=== PATIENT | male | born 1935 | race Caucasian/White ===

== ENCOUNTER → 2016-09-18 | Outpatient (CLI) | payer OTHER | LOC: FIMAGING 14:53 | PROVIDERS: ATTEND Family Medicine | DX: M48.56XA Collapsed vertebra, not elsewhere classified, lumbar region, initial encounter for fracture (principal); M51.36 Other intervertebral disc degeneration, lumbar region; M43.16 Spondylolisthesis, lumbar region ==

== ENCOUNTER 2016-09-20 07:25 | Emergency (ER) | payer OTHER ==
--- NOTE | 2016-09-20 07:44 | UCPHY ---
H & P Patient Type: Established HPI/ROS: CHIEF COMPLAINT: Low back pain HISTORY OF PRESENT ILLNESS: This patient is an 81 year old man, with a history of low back pain and disc herniation in the remote past, presenting with recurrence of low back pain, onset 2-3 weeks ago. The pain is localized to his diffuse lower back, moderate in severity. Pain is aggravated by laying flat and aggravated on the left side with lifting. He denies hip pain. Denies acute leg numbness or paresthesia. He denies bowel or bladder incontinence. Denies abdominal pain or recent fever. He denies fall or recent trauma. The patient had a similar recurrence of pain approximately one year ago, for which he got a prescription for Tramadol, which alleviated his symptoms. He tried taking the Tramadol for his current symptoms, with very slight alleviation. He saw Dr. Stallworth at [facility] on , two days ago. Dr. Stallworth ordered lumbar spine X-ray for evaluation. For the last day and a half, he has taken three doses of Tramadol daily and has alternated Aleve (two pills per day) and Advil (two pills per day) every 6 hours , with little alleviation. He last took Tramadol at 4am (four hours ago) Lumbar spine x-ray 09/18/16: Impression: 1. Moderate compression of L1 vertebral body and mild anterior wedge compression deformity of L2 vertebral body. With no comparisons these are age indeterminate. Consider MRI for further evaluation to evaluate acuity. 2. 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 Most significant level is at L4-L5 where there is grade 1 anterior spondylolisthesis of L4 on L5. REVIEW OF SYSTEMS: A ten point review of systems was performed and is negative with the exception of the items mentioned in the HPI. The patient complains of constipation, the last several days. His last bowel movement was yesterday. He has been wearing adult diapers at night for the last week, in case of urinary incontinence, although he denies urinary incontinence. He reports generalized weakness since the pain onset. 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 He is , but his lives in assisted living. He lives alone at home. He has family in the area. His primary care provider is Dr. Stallworth with [facility]. - Physical Exam Exam: General Appearance: Alert. Vital signs reviewed. Blood pressure 166/98. Eyes: Pupils equal and round, no conjunctival injection, no discharge. Anicteric. ENT, Mouth: Mucous membranes are moist, no oropharyngeal erythema or edema. Neck: Nontender over the cervical spine, supple. Respiratory: Lungs are clear to auscultation; no wheezes, rales, or rhonchi. Cardiovascular: Regular rate and rhythm; no murmur, rub, or gallop. Gastrointestinal: Abdomen is soft and nontender, no masses or organomegaly, bowel sounds normal. Rectal: Normal rectal tone. Nontender. Skin: Warm and dry, no rashes on exposed skin, normal color. Back: Nontender to palpation over the thoracolumbar spine. No CVA tenderness. The is mild tenderness left lumbar paraspinous muscles. Extremities: No lower extremity edema, no calf tenderness or swelling. Neurological: Alert and oriented. Moving all four extremities easily and equally. Strength is 5 over 5 bilaterally with testing of all major motor groups. Sensation is intact to light touch over all 4 extremities. Deep tendon reflexes are 3+ in the knees bilaterally, absent ankle DTRs. No clonus. Gait is normal. Psychiatric: Normal affect. Constitutional: Initial Vital Signs Temperature (C) 36.4 C 09/20/16 07:44 Heart Rate 71 09/20/16 07:44 Respiratory Rate 18 09/20/16 07:44 Blood Pressure 166/98 H 09/20/16 07:44 O2 Sat (%) 96 09/20/16 07:44 O2 Delivery Mode Room Air Allergies/Adverse Reactions: No Known Allergies Allergy (Verified 09/20/16 07:44) Home Medications: Medication Instructions Recorded Orphenadrine Citrate [Norflex 100 100 mg PO HS #10 tab 10/27/15 mg (RX)] Tramadol HCl 50 mg PO QID #20 tablet 10/27/15 Hydrocodone/APAP 5/325 [[place] 1 - 2 tab PO Q4 PRN #15 tab 09/20/16 5/325 (RX)] Medical Decision Making ED Course/Re-evaluation: This patient presents with three weeks of low back pain, without leg paresthesia or weakness or bowel/bladder incontinence. The pain is moderate in severity and he is moderately uncomfortable in the room. Lower extremity strength is 5/5 on exam bilaterally. Patellar reflexes are symmetric and 3+ bilaterally. Rectal tone is normal on exam. The patient has taken Tramadol, Aleve, and Advil for alleviation, last dose of tramadol at 4am. The patient has seen Dr. Stallworth at [facility] and had lumbar spine x-rays taken 09/18/16, which demonstrated moderate compression of L1 vertebral body and mild anterior wedge compression deformity of L2 vertebral body as well as multilevel degenerative disk and degenerative joint disease lumbar spine, most significant at L4-L5 where there is grade 1 anterior spondylolisthesis of L4 on L5. I discussed my recommendation for lumbar spine MRI (to assess age of compression fractures) and referral to neurosurgery. I offered to transfer the patient to [facility] for lumbar spine MRI today. I also offered to communicate with [place] and try to arrange a MRI as an outpatient. I ordered a dose of ibuprofen in the [facility] today, 400mg PO. I also offered to write a prescription for [place] for home use. I have advised him to not drive or operate heavy machinery while taking the [place]. I have contacted [facility] MRI/imaging to arrange outpatient MRI. I have made an appointment for the patient at 10:30am this morning. He will drive himself to [facility] for the appointment. Dr. Carrizales will be the reading physician. I have also contacted [facility] to inform them of the patient's condition and coordinate care. Addendum. 3:00 p.m.. Patient underwent MRI scanning and I was contacted by Dr. Lemus with a report that he had an acute/subacute L1 compression fracture with some retropulsion but no conus compression. I spoke with Dr. Thibodeaux of Neurosurgery who recommends a Casey brace and pain control. He will see the patient in his office in two weeks. Arrangements have been made for [employer] brace to fit him for a Jewitt brace. He will meet [employer] brace rep at [facility]. Addendum: I spoke with the patient on September 23. He telephoned yesterday wondering about using a muscle relaxant. He is having some success with the hydrocodone but continues with significant pain. He has not been able to wear the brace. He tried it for couple of days but is no longer wearing it because it is uncomfortable. He is currently using hydrocodone, no more frequently than one pill every 4 hours, and Advil 400 mg 3 times daily. He would like to try a muscle relaxant. I have agreed to phone in a prescription for a muscle relaxant for him to use. He understands that he should not take it along with the hydrocodone. I have advised him that if he is still having continued pain or if he has any worsening of his pain he needs to see his primary care physician or return to the urgent care or emergency department. He also understands that if he has bowel or bladder problems he needs to be seen immediately. He has an appointment with Neurosurgery on September 29, 5 days hence. Differential Diagnosis: The differential diagnosis for the patient's back pain included but was not limited to musculo-skeletal pain, epidural abscess, herniated disk, spinal fracture, and intra-abdominal causes including urinary system. - Data Points Medications Given: Discontinued Medications Ibuprofen (Motrin) 400 mg PO EDNOW ONE Stop: 09/20/16 08:29 Last Admin: 09/20/16 08:40 Dose: 400 mg Departure - Departure Disposition: Home, Routine, Self-Care Clinical Impression: Low back pain Condition: Good Instructions: Back Pain (ED) Additional Instructions: You have an appointment for an outpatient lumbar spine MRI at [facility]-imaging department at 10:30am today. Followup with a clinical account specialist or neurosurgeon within 2-3 weeks. Return to the [facility] or seek care from an emergency department for severe pain, fever, numbness, difficulty walking, change in location or nature of pain or other concerns. Take 400mg ibuprofen, three times daily (every 6 hours). Take the [place] for severe pain, as directed. Do not drive or operate heavy machinery while taking the [place]. Referrals: Shayy Stallworth MD [Primary Care Provider] - As per Instructions Kd Thibodeaux MD [Medical Doctor] - As per Instructions (Neurosurgeon) Prescriptions: Hydrocodone/APAP 5/325 [[place] 5/325 (RX)] 1 - 2 tab PO Q4 PRN #15 tab PRN Reason: pain - PQRS PQRS Measurement: 134: Depression screening and followup, PRIME MD-PHQ2 (12 years and older) Over the last 2 weeks, how often have you been bothered by any of the following problems? 1. Feeling down, depressed, or hopeless? 2. Little interest or pleasure in doing things? Patient answered no to both 1 and 2 130: Documentation of medications. Reviewed all patient medications, doses, route and frequency. 226: Do you smoke? No. 47: 65 and older: Advanced care planning. Patient has advanced directive. 51: 18 years old and older with diagnosis of COPD, spirometry performance. Patient has no history of COPD 52: 18 years old and older with COPD and symptoms of COPD or FEV1<60% predicted prescribed a B Agonist. Not applicable. Report Scribed for: Krystal Moran Report Scribed by: Cydney Mora Date of Report: 09/20/16 Time of Report: 08:06 Physician Review and Approval Statement: 09/20/16 15:10 Portions of this note were transcribed by the medical staff manager. I, Dr. Krystal Moran, personally performed the history, physical exam, and medical decision- making; and confirmed the accuracy of the information in the transcribed note.
[2016-09-20 07:47] VITALS: BP 166/98; PULSE 71; RESP 18; TEMP 97.5; O2SAT 96
[2016-09-20] MEDS ORDERED: IBUPROFEN 200 MG TAB PO ONE (08:28)
== END 2016-09-20 09:17 | disposition home or self-care (01) ==
LOC: CED 07:25
DX: M54.9 Dorsalgia, unspecified (principal); S32.010A Wedge compression fracture of first lumbar vertebra, initial encounter for closed fracture; M51.36 Other intervertebral disc degeneration, lumbar region; M43.16 Spondylolisthesis, lumbar region; Z87.891 Personal history of nicotine dependence
CPT/HCPCS: 72148; G0463

== ENCOUNTER 2016-09-20 16:30 | Emergency (ER) | payer OTHER | END 2016-09-20 17:10 | disposition left against medical advice (07) | LOC: CED 16:30 | DX: Z46.89 Encounter for fitting and adjustment of other specified devices (principal); Z53.21 Procedure and treatment not carried out due to patient leaving prior to being seen by health care provider ==

== ENCOUNTER 2016-09-27 08:57 | Emergency (ER) | payer OTHER ==
--- NOTE | 2016-09-27 09:06 | EDPHY ---
H & P Stated Complaint: SUDDEN MEMORY LOSS AROUND 1AM Time Seen by Provider: 09/27/16 09:05 - Personal History Current Tetanus/Diphtheria Vaccine: Unsure Current Tetanus Diphtheria and Acellular Pertussis (TDAP): Unsure - Medical/Surgical History Hx Asthma: No Hx Chronic Respiratory Disease: No Hx Diabetes: No Hx Cardiac Disease: No Hx Renal Disease: No Hx Cirrhosis: No Hx Alcoholism: No Hx HIV/AIDS: No Hx Splenectomy or Spleen Trauma: No Other PMH: Hernia Repair, Sinusitis - Social History Smoking Status: Former smoker Constitutional: Initial Vital Signs Temperature (C) 36.3 C 09/27/16 08:59 Heart Rate 82 09/27/16 08:59 Respiratory Rate 16 09/27/16 08:59 Blood Pressure 192/113 H 09/27/16 08:59 O2 Sat (%) 97 09/27/16 08:59 O2 Delivery Mode Room Air Allergies/Adverse Reactions: No Known Allergies Allergy (Verified 09/20/16 07:44) Home Medications: Medication Instructions Recorded Orphenadrine Citrate [Norflex 100 100 mg PO HS #10 tab 10/27/15 mg (RX)] Tramadol HCl 50 mg PO QID #20 tablet 10/27/15 Hydrocodone/APAP 5/325 [[place] 1 - 2 tab PO Q4 PRN #15 tab 09/20/16 5/325 (RX)] Medical Decision Making ED Course/Re-evaluation: CHIEF COMPLAINT: "I had sudden memory loss" HISTORY OF PRESENT ILLNESS: The patient is an 81 y/o male arriving with his son complaining of sudden memory loss since at least last night. He says, "when I tried to use the phone or computer this morning there were all kinds of things I couldn't remember." He doesn't remember that his is in the hospital and that he has been visiting her recently and still does not remember these events. His son at bedside reports last night, the patient's other son said the patient seemed confused and didn't know where his was. The patient denies denies recent illness or trauma. He denies weakness or paresthesias. He notes he recently started using narcotics and a muscle relaxant for back pain over a week ago. REVIEW OF SYSTEMS: A 10 point review of systems was performed and is negative with the exception of the elements mentioned in the history of present illness. PHYSICAL EXAM: HR, BP, O2 Sat, RR. Temp noted General Appearance: Alert, well hydrated, appropriate, and non-toxic appearing. Head: Atraumatic without scalp tenderness or obvious injury Eyes: Pupils equal, round, reactive to light and accommodation, EOMI, no trauma , no injection. Ears: Clear bilaterally, no perforation, normal landmarks Nose: Atraumatic, no rhinorrhea, clear. Throat: There is no erythema or exudates, no lesions, normal tonsils, mucus membranes moist. Neck: Supple, 2+ carotid upstroke, nontender, no lymphadenopathy. Respiratory: No retractions, no distress, no wheezes, and no accessory muscle use. Lungs are clear to auscultation bilaterally. Cardiovascular: Regular rate and rhythm, no murmurs, rubs, or gallops. Bilateral carotid, radial, dorsalis pedis, and posterior tibial pulses intact. Good capillary refill all extremities. Gastrointestinal: Abdomen is soft, nontender, non-distended, no masses, no rebound, no guarding, no peritoneal signs. Musculoskeletal: Normal active ROM of all extremities, atraumatic. Neurological: Alert, appropriate, and interactive. The patient has normal DTRs and non-focal cranial nerves, motor, sensory, and cerebellar exam. Skin: No rashes, good turgor, no nodules on palpation. Past medical history: Back pain, sinusitis Past surgical history: Hernia repair Family history: noncontributory Social history: Son at bedside. 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 [place] medical [place] [facility] [place] for back pain on 09/20/16. DIAGNOSTICS/PROCEDURES/CRITICAL CARE TIME: Study: MRI of the: Brain Indication: Neurologic, memory loss Results: MRI scan of the brain was obtained. The results of the study are sinusitis, nothing acute. The study was read by the radiologist, Dr. Santiago. I viewed the images myself on the PACS system. DIFFERENTIAL DIAGNOSIS: The differential diagnosis for the patient's neurologic deficits included but was not limited to peripheral causes, central causes including CVA, TIA, electrolyte abnormalities and dehydration, cardiogenic causes, atypical causes like migraine syndrome. MEDICAL DECISION MAKING: This is a largely healthy 81 y/o male presenting with symptoms consistent with transient global amnesia onset sometime between last night and this morning. He has a normal neuro exam on assessment and remembers his conversations this morning; however his memory for the last several days has not returned. He has recently started narcotics and muscle relaxants for back pain, but he has no slurred speech or other symptoms indicative of narcotic over-use. Plan for brain MRI to rule out acute process. Brain MRI is negative for acute process. I discussed these findings with the patient and recommended outpatient follow as needed. He is comfortable with this plan. Return precautions given. - Data Points Laboratory Results: Laboratory Results 09/27/16 09:40 09/27/16 09:40 09/27/16 09/27/16 09:40 09:40 WBC 7.15 10^3/uL 10^3/uL (3.80-9.50) RBC 4.43 10^6/uL 10^6/uL (4.40-6.38) Hgb 13.9 g/dL g/dL (13.7-17.5) Hct 39.0 % L % (40.0-51.0) MCV 88.0 fL fL (81.5-99.8) MCH 31.4 pg pg (27.9-34.1) MCHC 35.6 g/dL g/dL (32.4-36.7) RDW 13.2 % % (11.5-15.2) Plt Count 221 10^3/uL 10^3/uL (150-400) MPV 9.0 fL fL (8.7-11.7) Neut % (Auto) 74.9 % H % (39.3-74.2) Lymph % (Auto) 16.8 % % (15.0-45.0) [place] % (Auto) 5.7 % % (4.5-13.0) Eos % (Auto) 1.3 % % (0.6-7.6) Baso % (Auto) 0.7 % % (0.3-1.7) Nucleat RBC Rel Count 0.0 % % (0.0-0.2) Absolute Neuts (auto) 5.36 10^3/uL 10^3/uL (1.70-6.50) Absolute Lymphs (auto) 1.20 10^3/uL 10^3/uL (1.00-3.00) Absolute Monos (auto) 0.41 10^3/uL 10^3/uL (0.30-0.80) Absolute Eos (auto) 0.09 10^3/uL 10^3/uL (0.03-0.40) Absolute Basos (auto) 0.05 10^3/uL 10^3/uL (0.02-0.10) Absolute Nucleated RBC 0.00 10^3/uL 10^3/uL (0-0.01) Immature Gran % 0.6 % % (0.0-1.1) Immature Gran # 0.04 10^3/uL 10^3/uL (0.00-0.10) Sodium 132 mEq/L L mEq/L (134-144) Potassium 4.2 mEq/L mEq/L (3.5-5.2) Chloride 98 mEq/L mEq/L (97-110) Carbon Dioxide 25 mEq/l mEq/l (22-31) Anion Gap 9 mEq/L mEq/L (8-16) BUN 16 mg/dL mg/dL (7-23) Creatinine 0.8 mg/dL mg/dL (0.7-1.3) Estimated GFR > 60 Glucose 102 mg/dL H mg/dL (70-100) Calcium 9.2 mg/dL mg/dL (8.5-10.4) Departure - Departure Disposition: Home, Routine, Self-Care Clinical Impression: Transient global amnesia Condition: Good Instructions: Transient Global Amnesia (ED) Additional Instructions: I recommend having a family member stay with you for a while to watch for returning symptoms. Follow up with your primary care provider if needed. Return to the ED for worsening of condition. Referrals: Shayy Stallworth MD [Primary Care Provider] - As per Instructions Report Scribed for: Artur Marlow Report Scribed by: Jacinta Camargo Date of Report: 09/27/16 Time of Report: 09:35
[2016-09-27 09:47] LABS: % IMMATURE GRANULYOCYTES 0.6 % (0.0-1.1); ABSOLUTE IMMATURE GRANULOCYTES 0.04 10^3/uL (0.00-0.10); ADD DIFF? NO; ADD MORPH? NO; ADD SCAN? NO; ATYPICAL LYMPHOCYTE FLAG 10 (0-99); FRAGMENT RBC FLAG 0 (0-99); HEMOGLOBIN 13.9 g/dL (13.7-17.5); LEFT SHIFT FLG 0 (0-99); LIPEMIA HEMOLYSIS FLAG 90 (0-99); MEAN CELL HEMOGLOBIN 31.4 pg (27.9-34.1); MEAN CELL HEMOGLOBIN CONCENTR. 35.6 g/dL (32.4-36.7); PLATELET CLUMPS FLAG 0 (0-99); PLATELET COUNT 221 10^3/uL (150-400); RED BLOOD CELL COUNT 4.43 10^6/uL (4.40-6.38); RED CELL DISTRIBUTION WIDTH 13.2 % (11.5-15.2)
[2016-09-27 10:07] LABS: ANION GAP 9 mEq/L (8-16); CALCIUM 9.2 mg/dL (8.5-10.4); CARBON DIOXIDE 25 mEq/l (22-31); CHLORIDE 98 mEq/L (97-110); CREATININE 0.8 mg/dL (0.7-1.3); GLOMERULAR FILTRATION RATE > 60; GLUCOSE 102 mg/dL (70-100); POTASSIUM 4.2 mEq/L (3.5-5.2); SODIUM 132 mEq/L (134-144)
[2016-09-27] MEDS ORDERED: GADOBUTROL 10 ML VIAL IVP ONE (10:26)
[2016-09-27 11:49] VITALS: BP 109/75; PULSE 69; RESP 18; TEMP 98.2; O2SAT 96
== END 2016-09-27 11:46 | disposition home or self-care (01) ==
DX: G45.4 Transient global amnesia (principal); Z87.891 Personal history of nicotine dependence
CPT/HCPCS: 70553; 99284; A9585

== ENCOUNTER 2017-11-04 16:10 | Emergency (ER) | payer OTHER ==
--- NOTE | 2017-11-04 16:23 | CPEKG ---
Heart Rate: 72 RR Interval: 833 P-R Interval: 150 QRSD Interval: 92 QT Interval: 396 QTC Interval: 434 P [place]: 71 QRS [place]: 30 T Wave [place]: 6 EKG Severity - NORMAL ECG - EKG Impression: SINUS RHYTHM EKG Impression: Some artifact. Otherwise, agree with above. Electronically Signed By: Zachary Aldrich 05-Nov-2017 11:00:58
[2017-11-04 16:45] LABS: PLATELET COUNT 186 10^3/uL (150-400)
[2017-11-04 18:21] VITALS: BP 172/96
--- NOTE | 2017-11-04 18:44 | EDPHY ---
H & P Stated Complaint: Heartburn, SOB Time Seen by Provider: 11/04/17 16:14 HPI/ROS: 82 yo M presents c/o phlegm in his throat for several months, heartburn and he believes his heart was racing while working in the yard this week. Review of systems As per HPI General no fever no chills no weakness HEENT no eye pain no eye discharge. No eye redness, no sore throat Respiratory no cough, no shortness of breath Cardiac pos chest pain, no peripheral edema, positive palpitations GI no abdominal pain, no diarrhea, no constipation, no nausea, no vomiting no flank pain, no hematuria, no dysuria Musculoskeletal no myalgias, no joint pain Heme no easy bruising, no easy bleeding Endo no polyuria, no polydipsia Skin no rashes, no pruritus Neuro no syncope, no dizziness, no headaches Psych is no suicidal ideation, no homicidal ideation Source: Patient Exam Limitations: No limitations - Personal History Current Tetanus/Diphtheria Vaccine: Unsure Current Tetanus Diphtheria and Acellular Pertussis (TDAP): Unsure - Medical/Surgical History Hx Asthma: No Hx Chronic Respiratory Disease: No Hx Diabetes: No Hx Cardiac Disease: No Hx Renal Disease: No Hx Cirrhosis: No Hx Alcoholism: No Hx HIV/AIDS: No Hx Splenectomy or Spleen Trauma: No Other PMH: Hernia Repair, Sinusitis - Social History Smoking Status: Former smoker - Physical Exam Exam: 82-year-old male alert and oriented no acute distress nontoxic appearance afebrile No tachypnea, no tachycardia HEENT atraumatic normocephalic, extraocular muscles intact, anicteric Oropharynx negative for erythema negative exudate, tolerating her own secretions Neck supple no meningismus Lungs clear to auscultation bilaterally Heart regular rate and rhythm with 2/6 mild systolic ejection murmur Abdomen nondistended normoactive bowel sounds soft nontender Back no CVA tenderness, no step-offs, no spinal tenderness Extremities no cyanosis clubbing or edema Neuro alert and oriented, no focal deficits Constitutional: Initial Vital Signs Temperature (C) 36.4 C 11/04/17 16:19 Heart Rate 81 18 16:19 Respiratory Rate 17 18 16:19 Blood Pressure 194/109 H 18 16:19 O2 Sat (%) 98 11/04/17 16:19 O2 Delivery Mode Room Air Allergies/Adverse Reactions: No Known Allergies Allergy (Verified 09/20/16 07:44) Home Medications: Medication Instructions Recorded Orphenadrine Citrate [Norflex 100 100 mg PO HS #10 tab 10/27/15 mg (RX)] Tramadol HCl 50 mg PO QID #20 tablet 10/27/15 Hydrocodone/APAP 5/325 [[place] 1 - 2 tab PO Q4 PRN #15 tab 09/20/16 5/325 (RX)] Medical Decision Making - Diagnostics EKG Interpretation: Normal sinus rhythm, no ischemic changes Imaging Results: Imaging Impressions Chest X-Ray 11/04/17 16:31 Impression: 1. No pneumonia. Normal heart. 2. Right upper lobe nodule. If there are any old outside chest x-rays, we would be happy to review them to assess for interval change. If not, recommend noncontrast chest CT for further evaluation. Results discussed with Dr. Sanchez at 5:20 PM. ED Course/Re-evaluation: Patient seen and evaluated for phlegm several months duration, palpitations, heartburn. EKG normal sinus rhythm Chest x-ray no infiltrate, nodule noted by radiologist report given to patient to give to his primary care physician for further follow-up Labs D-dimer negative Troponin negative x2 CBC within normal limits CMP within normal limits TSH wnl Imp palpitations cxr with nodule, not likely related to todays complaints heartburn- neg troponins, normal ekg, pt states worse with swallowing-?GERD Plan Negative workup in the ED, pt with mulitple complaints, and he states he honestly never would have come to the ED he just wanted to see his pcp, but when he called the practice hotline they told him he must come in. He has had the excessive phlegm for months, new this week were the palpitations- none while in the ED. I advised him to follow up martinez with his pcp. Differential Diagnosis: Differential diagnosis considered but not limited to: Arrhythmia, pneumonia, bronchitis, URI, GERD, myocardial infarction, hyperthyroidism - Data Points Laboratory Results: Laboratory Results 11/04/17 16:40 11/04/17 16:40 11/04/17 11/04/17 11/04/17 18:18 16:40 16:40 WBC RBC Hgb Hct MCV MCH MCHC RDW Plt Count MPV Neut % (Auto) Lymph % (Auto) Rogers % (Auto) Eos % (Auto) Baso % (Auto) Nucleat RBC Rel Count Absolute Neuts (auto) Absolute Lymphs (auto) Absolute Monos (auto) Absolute Eos (auto) Absolute Basos (auto) Absolute Nucleated RBC Immature Gran % Immature Gran # D-Dimer 0.52 ug/mLFEU H ug/mLFEU (0.00-0.50) Sodium 137 mEq/L mEq/L (135-145) Potassium 4.0 mEq/L mEq/L (3.5-5.2) Chloride 100 mEq/L mEq/L (97-110) Carbon Dioxide 27 mEq/l mEq/l (22-31) Anion Gap 10 mEq/L mEq/L (8-16) BUN 16 mg/dL mg/dL (7-23) Creatinine 1.0 mg/dL mg/dL (0.7-1.3) Estimated GFR > 60 Glucose 100 mg/dL mg/dL (70-100) Calcium 9.3 mg/dL mg/dL (8.5-10.4) Total Bilirubin 0.9 mg/dL mg/dL (0.1-1.4) AST 19 IU/L IU/L (17-59) ALT 22 IU/L IU/L (21-72) Alkaline Phosphatase 67 IU/L IU/L (38-126) Troponin I 0.029 ng/mL ng/mL 0.025 ng/mL ng/mL (0.000-0.034) (0.000-0.034) NT-Pro-B Natriuret Pep 494 pg/mL H pg/mL (0-450) Total Protein 7.1 g/dL g/dL (6.3-8.2) Albumin 3.7 g/dL g/dL (3.5-5.0) TSH 11/04/17 11/04/17 16:40 16:30 WBC 8.64 10^3/uL 10^3/uL (3.80-9.50) RBC 4.65 10^6/uL 10^6/uL (4.40-6.38) Hgb 14.2 g/dL g/dL (13.7-17.5) Hct 41.7 % % (40.0-51.0) MCV 89.7 fL fL (81.5-99.8) MCH 30.5 pg pg (27.9-34.1) MCHC 34.1 g/dL g/dL (32.4-36.7) RDW 13.8 % % (11.5-15.2) Plt Count 186 10^3/uL 10^3/uL (150-400) MPV 8.5 fL L fL (8.7-11.7) Neut % (Auto) 69.5 % % (39.3-74.2) Lymph % (Auto) 20.6 % % (15.0-45.0) Rogers % (Auto) 7.4 % % (4.5-13.0) Eos % (Auto) 1.6 % % (0.6-7.6) Baso % (Auto) 0.6 % % (0.3-1.7) Nucleat RBC Rel Count 0.0 % % (0.0-0.2) Absolute Neuts (auto) 6.00 10^3/uL 10^3/uL (1.70-6.50) Absolute Lymphs (auto) 1.78 10^3/uL 10^3/uL (1.00-3.00) Absolute Monos (auto) 0.64 10^3/uL 10^3/uL (0.30-0.80) Absolute Eos (auto) 0.14 10^3/uL 10^3/uL (0.03-0.40) Absolute Basos (auto) 0.05 10^3/uL 10^3/uL (0.02-0.10) Absolute Nucleated RBC 0.00 10^3/uL 10^3/uL (0-0.01) Immature Gran % 0.3 % % (0.0-1.1) Immature Gran # 0.03 10^3/uL 10^3/uL (0.00-0.10) D-Dimer Sodium Potassium Chloride Carbon Dioxide Anion Gap BUN Creatinine Estimated GFR Glucose Calcium Total Bilirubin AST ALT Alkaline Phosphatase Troponin I NT-Pro-B Natriuret Pep Total Protein Albumin TSH 1.170 uIU/mL uIU/mL (0.465-4.680) Departure - Departure Disposition: Home, Routine, Self-Care Clinical Impression: Heartburn symptom, Productive cough, Palpitations Condition: Good Instructions: Chest Pain (ED), Heart Palpitations (ED), Gastroesophageal Reflux Disease (ED) Additional Instructions: Please see your primary care as soon as possible. You have a nodule on your chest xray that may require further imaging if it is new. Your blood pressure was elevated today and it is important for you to get it rechecked this week. Referrals: Shayy Stallworth MD [Primary Care Provider] - As per Instructions
== END 2017-11-04 19:24 | disposition home or self-care (01) ==
LOC: CED 16:10
DX: R12 Heartburn (principal); R00.2 Palpitations; R05 Cough; Z87.891 Personal history of nicotine dependence
CPT/HCPCS: 71046-PO; 80053-PO; 83880-PO; 84443-PO; 84484-PO; 85025-PO; 85378-PO